=== PATIENT | male | born 1975 | race African-American/Black ===

== ENCOUNTER 2024-08-19 14:06 | Emergency (ER) | payer OTHER ==
[~2024-08-19] VITALS: Ht 182.9 cm; Wt 90.0 kg
[2024-08-19 15:08] LABS: BASOPHILS % 0.5 % (0.0-2.0); HEMOGLOBIN. 13.3 g/dL (14.0-18.0); LYMPHOCYTES % 17.8 % (20.0-50.0); MEAN CORPUSCULAR HEMOGLOBIN 30.6 pg (28.0-32.0); MEAN CORPUSCULAR HGB CONC 33.1 g/dL (31.0-37.0); MEAN CORPUSCULAR VOLUME 92.3 fL (80.0-94.0); MEAN PLATELET VOLUME 8.3 fl (7.4-10.4); MONOCYTES % 6.6 % (2.0-8.0); NEUTROPHILS % 64.1 % (40.0-76.0); PLATELET 251 x1000/uL (130-400); RED BLOOD CELL COUNT 4.34 mill/uL (4.7-6.1); RED CELL DISTRIBUTION WIDTH 14.9 % (11.6-14.6); WHITE BLOOD COUNT 7.9 x1000/uL (4.5-11.0)
[2024-08-19 15:16] LABS: CLARITY URINE CLEAR (CLEAR); COLOR URINE YELLOW (YELLOW); GLUCOSE URINE NEGATIVE (NEGATIVE); KETONES URINE TRACE (NEGATIVE); LEUKOCYTE ESTERASE URINE NEGATIVE (NEGATIVE); NITRITE URINE NEGATIVE (NEGATIVE); OCCULT BLOOD URINE NEGATIVE (NEGATIVE); PROTEIN URINE TRACE (NEGATIVE); UROBILINOGEN URINE 0.2 E.U./dL (0.2-1.0)
[2024-08-19 15:17] LABS: CHLORIDE 106 mEq/L (98-107); POTASSIUM 3.2 mEq/L (3.5-5.1); SODIUM 143 mEq/L (136-145)
[2024-08-19 15:18] LABS: CALCIUM 9.2 mg/dL (8.7-10.4); CARBON DIOXIDE 26 mEq/L (21-32)
[2024-08-19 15:23] LABS: CREATININE 0.9 mg/dL (0.6-1.3); GLUCOSE 88 mg/dL (70-105); UREA NITROGEN BLOOD 11 mg/dL (9-23)
[2024-08-19 15:24] LABS: ETHANOL BLOOD 119 mg/dL (<10)
[2024-08-19 15:25] LABS: ACETAMINOPHEN < 2 ug/mL (10-30)
[2024-08-19 15:27] LABS: *AMPHETAMINES SCREEN URINE PRESUMPTIVE POSITIVE (NEGATIVE); *BARBITURATES SCREEN URINE NEGATIVE (NEGATIVE); *BENZODIAZEPINES SCREEN URINE PRESUMPTIVE POSITIVE (NEGATIVE); *COCAINE SCREEN URINE PRESUMPTIVE POSITIVE (NEGATIVE); CANNABINOID URINE SCREEN PRESUMPTIVE POSITIVE (NEGATIVE); ECSTASY MDMA SCREEN URINE CONF.TEST INDICATED (NEGATIVE); METHADONE URINE SCREEN NEGATIVE (NEGATIVE); OPIATES URINE SCREEN NEGATIVE (NEGATIVE); PHENCYCLIDINE URINE SCREEN NEGATIVE (NEGATIVE)
[2024-08-19 15:52] LABS: RBC URINE NONE SEEN /hpf (0-2); SQUAMOUS EPITHELIAL CELL URINE NONE SEEN /lpf (RARE/1+); WBC URINE 0-2 /hpf (0-2)
[2024-08-19 15:53] LABS: BACTERIA URINE NONE SEEN; HYALINE CASTS URINE 0-5 /lpf
[2024-08-19] MEDS ORDERED: LORAZEPAM 2MG/ML INJ IV ONE (17:00)
[2024-08-19] MEDS: HALOPERIDOL LACTATE 5MG/ML VIAL IM ONE (17:06)
[2024-08-19] MEDS: LORAZEPAM 2MG/ML UD SYRINGE IV NR (17:06)
[2024-08-19 19:05] VITALS: O2SAT 99
[2024-08-19] MEDS: ZIPRASIDONE MESYLATE 20MG/VIAL IM ONE (19:49)
[2024-08-20] MEDS ORDERED: LORAZEPAM 2MG/ML INJ IM ONE (01:45)
[2024-08-20] MEDS: LORAZEPAM 2MG/ML UD SYRINGE IM NR (02:06)
[2024-08-20] MEDS: DIPHENHYDRAMINE 50MG/ML VIAL IM ONE (02:06)
[2024-08-20] MEDS: IBUPROFEN 800MG TABLET PO ONE (02:45)
[2024-08-20] MEDS: POTASSIUM CHLORIDE 20MEQ TABLET SR PO NR (16:05)
[2024-08-20 16:42] VITALS: BP 124/74; PULSE 63; RESP 16; TEMP 36.7; O2SAT 99
== END 2024-08-20 16:55 ==
LOC: ER 14:06
DX: F29 Unspecified psychosis not due to a substance or known physiological condition (principal); R45.1 Restlessness and agitation; J45.909 Unspecified asthma, uncomplicated; Z79.899 Other long term (current) drug therapy; Z20.822 Contact with and (suspected) exposure to COVID-19; F28 Other psychotic disorder not due to a substance or known physiological condition; Z88.8 Allergy status to other drugs, medicaments and biological substances
CPT/HCPCS: 80305; 80048; 81003; 80307; 80329; 80320; 85025; 36415; 71045; 93005; 96372 ×2; 96374; 99291; 87426; 72170; J1630; J2060 ×2; J3486; Z7610; J1200; G0480